=== PATIENT | female | born 1955 | race Caucasian/White ===

== ENCOUNTER → 2018-07-18 | Outpatient (CLI) | payer MEDICARE, OTHER ==
--- NOTE | 2018-07-18 21:20 | RAD ---
EXAM DESCRIPTION: Pelvis CLINICAL HISTORY: 63 years Female, M25.561, M25.551 COMPARISON: None. TECHNIQUE: AP radiograph of the pelvis was performed. FINDINGS: The pelvic ring appears grossly intact on this single AP radiograph. No acute fracture or dislocation. Bilateral sacroiliac joints appear normal. Mild bilateral hip osteoarthritis. Enthesopathy changes of the iliac crests are noted. The visualized lumbo-sacral spine demonstrates mild degenerative changes. IMPRESSION: Single AP radiograph of the pelvis demonstrates grossly intact pelvic ring. Mild bilateral hip osteoarthritis. Electronically signed by: Murray Evans MD 07/18/2018 9:17 PM CDT
--- NOTE | 2018-07-18 21:26 | RAD ---
EXAM DESCRIPTION: Knee,Right Complete CLINICAL HISTORY: 63 years Female, M25.561, M25.551 TECHNIQUE: 4 views of the right knee were performed. COMPARISON: None available. FINDINGS: The visualized bones appear well mineralized. No acute fracture or dislocation. Tricompartmental osteoarthritis, worse in the medial tibiofemoral compartment. Small suprapatellar joint effusion is noted. The soft tissues appear grossly unremarkable. IMPRESSION: Tricompartmental osteoarthritis of the right knee with small suprapatellar joint effusion. Electronically signed by: Murray Evans MD 07/18/2018 9:23 PM CDT
== END ==
LOC: RAD 09:00
PROVIDERS: ATTEND Orthopaedic Surgery
DX: M16.0 Bilateral primary osteoarthritis of hip (principal); M17.11 Unilateral primary osteoarthritis, right knee; M25.551 Pain in right hip; M25.561 Pain in right knee

== ENCOUNTER → 2019-03-05 | Outpatient (CLI) | payer MEDICARE, OTHER ==
--- NOTE | 2019-03-05 12:08 | RAD ---
EXAM DESCRIPTION: Knee,Left Complete CLINICAL HISTORY: 64 years Female, KNEE PAIN TECHNIQUE: 4 views of the left knee were performed. COMPARISON: None available. FINDINGS: The visualized bones appear well mineralized. No acute fracture or dislocation. Minimal medial tibiofemoral joint space narrowing. The soft tissues appear grossly unremarkable. IMPRESSION: Minimal medial tibiofemoral joint space narrowing. Electronically signed by: Vernell Reynolds MD 03/05/2019 12:07 PM [facility]
--- NOTE | 2019-03-05 12:08 | RAD ---
EXAM DESCRIPTION: Ankle,Left 3 Views CLINICAL HISTORY: 64 years Female, ANKLE PAIN COMPARISON: None. Findings: Three views/radiographs Lateral plate and screws transfix a healed distal fibular fracture. No hardware complication identified. The talar dome is unremarkable. The ankle mortise is symmetric. Calcaneal enthesophytes. No acute fracture or dislocation. No focal soft tissue swelling. IMPRESSION: No evidence of acute process. Electronically signed by: Yusuf Sawyer MD 03/05/2019 12:06 PM [facility]
== END | disposition home or self-care (01) ==
LOC: RAD 09:41
PROVIDERS: ATTEND Orthopaedic Surgery
DX: M25.562 Pain in left knee (principal)

== ENCOUNTER 2019-06-19 | Inpatient (IN) | payer MEDICARE, OTHER | END 2019-06-22 11:07 | DRG 470 | PROVIDERS: ADMIT Orthopaedic Surgery | PROC: 0SRC0J9 Replacement of Right Knee Joint with Synthetic Substitute, Cemented, Open Approach (ICD-10-PCS; principal; 2019-06-19) | PROC: 3E0T3BZ Introduction of Anesthetic Agent into Peripheral Nerves and Plexi, Percutaneous Approach (ICD-10-PCS; 2019-06-19) | PROC: 3E0T33Z Introduction of Anti-inflammatory into Peripheral Nerves and Plexi, Percutaneous Approach (ICD-10-PCS; 2019-06-19) | DX: M17.11 Unilateral primary osteoarthritis, right knee (principal); G89.18 Other acute postprocedural pain; I10 Essential (primary) hypertension; E03.9 Hypothyroidism, unspecified; J44.9 Chronic obstructive pulmonary disease, unspecified; G62.9 Polyneuropathy, unspecified; F32.9 Major depressive disorder, single episode, unspecified; K21.9 Gastro-esophageal reflux disease without esophagitis; F41.9 Anxiety disorder, unspecified; F17.210 Nicotine dependence, cigarettes, uncomplicated; Z79.01 Long term (current) use of anticoagulants; Z79.82 Long term (current) use of aspirin; Z79.899 Other long term (current) drug therapy; Z88.0 Allergy status to penicillin; Z79.891 Long term (current) use of opiate analgesic; Z86.711 Personal history of pulmonary embolism ==

== ENCOUNTER 2019-07-03 10:05 | Inpatient (IN) | payer MEDICARE, OTHER ==
[2019-07-03] MEDS ORDERED: SODIUM CHLORIDE 0.9% (FLUSH) 10 ML SYG IV PRN ×2 (10:16→14:21)
[2019-07-03] MEDS ORDERED: SODIUM CHLORIDE 0.9% 1000ML 1,000 ML IVS ONE (10:16)
--- NOTE | 2019-07-03 10:22 | ED.PDOC ---
History of Present Illness - General Chief Complaint: Lower Extremity Injury Stated Complaint: right knee post of cellulitis Time Seen by Provider: 07/03/19 10:15 Source: patient, RN notes reviewed, Vital Signs reviewed, EMS notes reviewed Exam Limitations: no limitations - History of Present Illness Initial Comments: Patient sent from rehab facility for fever, spreading redness to the right knee. Patient had TKR performed by Dr. Armas 06/18/2019. Patient states that he felt warm 2 nights ago, but this began yesterday and is progressively worsened. She ran a fever of 102 last night. She is afebrile now. O2 sats in route with EMS were in the mid 80s, patient does not have any history of COPD or respiratory failure. She denies any chest pain or shortness of breath. She does not report slight cough over the last 2 days. Allergies/Adverse Reactions: Allergies Penicillins Allergy (Severe, Verified 07/03/19 10:22) Anaphylaxis Home Medications: Ambulatory Orders Albuterol Sulfate 1.25 mg IN PRN PRN 06/04/19 Albuterol Sulfate [Proair Hfa] 2 puff INH Q6H PRN 06/04/19 Alprazolam [Xanax] 1 mg PO TID PRN 06/04/19 Apixaban [Eliquis] 5 mg PO BID 06/04/19 Aspirin [Aspirin Adult Low Dose] 81 mg PO DAILY 06/04/19 Atenolol [Tenormin] 50 mg PO BID 06/04/19 Cetirizine HCl [Zyrtec] 10 mg PO DAILY PRN 06/04/19 Clonidine [Clonidine HCl] 0.1 mg TD PRN PRN 06/04/19 Furosemide [Lasix] 20 mg PO DAILY 06/04/19 Gabapentin [Neurontin] 600 mg PO BEDTIME 06/04/19 Hydroxyzine HCl 50 mg PO BEDTIME 06/04/19 Potassium Chloride [K-Tab] 10 meq PO BID 06/04/19 Thyroid [[place] Thyroid] 30 mg PO DAILY 06/04/19 Tiotropium [place] Monohydrate [Spiriva Handihaler] 18 mcg IN DAILY 06/04/19 Vortioxetine HBr [Trintellix] 20 mg PO DAILY 06/04/19 raNITIdine HCL [Zantac] 150 mg PO PRN PRN 06/04/19 Cyclobenzaprine HCl [Flexeril] 10 mg PO Q8H PRN #30 tab 06/22/19 HYDROcodone 10MG/APAP 325MG [[place] 10/325] 1 ea PO Q4H PRN tab 06/22/19 Review of Systems - Review of Systems Constitutional: States: chills, fever EENTM: States: no symptoms reported Respiratory: States: cough. Denies: orthopnea, short of breath, wheezing Cardiology: Denies: chest pain, edema, palpitations, syncope Gastrointestinal/Abdominal: Denies: abdominal pain, diarrhea, vomiting Genitourinary: Denies: dysuria, hematuria Musculoskeletal: States: joint pain, joint swelling Skin: States: change in color. Denies: rash Neurological: Denies: headache, numbness, tingling Endocrine: States: no symptoms reported Hematologic/Lymphatic: States: no symptoms reported Past Medical History (General) - Patient Medical History Hx Seizures: No Hx Stroke: No Hx Asthma: No Hx of COPD: Yes Hx Congestive Heart Failure: No Hx Pacemaker: No Hx Hypertension: Yes Hx Diabetes: No Hx MRSA: No - Social History Hx Alcohol Use: No Hx Substance Use: No Hx Physical Abuse: No Hx Emotional Abuse: No Family Medical History - Family History Mother Family History: Unknown Physical Exam - Physical Exam General Appearance: Alert, Comfortable Ears, Nose, Throat: hearing grossly normal, normal ENT inspection, normal pharynx, other - Dry mucosa Neck: supple, normal inspection Respiratory: chest non-tender, lungs clear, normal breath sounds, no respiratory distress Cardiovascular/Chest: normal peripheral pulses, regular rate, rhythm, no gallop, no JVD, other - 2-3+ pitting edema to the right lower extremity consistent with recent knee surgery. No calf tenderness Peripheral Pulses: posterior tibialis,right: 2+, posterior tibialis,left: 2+ Gastrointestinal/Abdominal: non tender, soft, no organomegaly Rectal Exam: deferred Back Exam: normal inspection, no CVA tenderness Extremity: no calf tenderness, swelling - Well-healed incision from recent TKR procedure. There is erythema spreading from the distal third of the thigh to the proximal third of the lower leg anteriorly. Knee is warm, swollen, Erythematous., other Neurologic: no motor/sensory deficits, alert, normal mood/affect, oriented x 3 Skin Exam: warm/dry, cyanosis, other - See musculoskeletal exam Progress - Progress Progress: 07/03/19 10:57 Dr. armas came and saw the patient in the emergency department. He states he will discuss with hospitalist regarding admission for cellulitis. Does not feel this represents a septic joint, felt to be more likely superficial cellulitis. 07/03/19 11:27 Spoke with Markell Thomas NP. He discussed the case with Dr. armas, will admit for IV antibiotics. Reviewed positive flu swab and initial hypoxia. Will review with case management regarding observation versus admission status. - Results/Orders Results/Orders: Sodium 136 (L) Potassium 3.6 Calcium 1.07 (L) Chloride 98 CO2 27.6 Glucose 97 Lactate 0.65 BUN 9 Creatinine 0.57 Influenza A positive/B- Laboratory Tests 07/03/19 07/03/19 07/03/19 10:20 10:31 10:31 WBC 6.9 RBC 3.67 L Hgb 9.2 L Hct 28.7 L MCV 78.1 L MCH 25.0 L MCHC 32.0 L RDW 17.5 H Plt Count 366 MPV 7.0 L Absolute Neuts (auto) 4.90 Absolute Lymphs (auto) 1.30 Absolute Monos (auto) 0.70 Absolute Eos (auto) 0.00 Absolute Basos (auto) 0.00 Neutrophils % 70.5 Lymphocytes % 18.6 L Monocytes % 9.5 H Eosinophils % 0.7 L Basophils % 0.7 PT 11.1 H INR 1.12 PTT (SP) 26.0 Troponin I B-Natriuretic Peptide Group A Strep Rapid Negative 07/03/19 07/03/19 10:31 10:31 WBC RBC Hgb Hct MCV MCH MCHC RDW Plt Count MPV Absolute Neuts (auto) Absolute Lymphs (auto) Absolute Monos (auto) Absolute Eos (auto) Absolute Basos (auto) Neutrophils % Lymphocytes % Monocytes % Eosinophils % Basophils % PT INR PTT (SP) Troponin I < 0.02 B-Natriuretic Peptide 97.6 Group A Strep Rapid - EKG/XRAY/CT EKG: Sinus - Sinus rhythm, rate 74, left axis, normal intervals, poor R wave progression, no ST segment elevations or depressions Departure - Departure Clinical Impression: Influenza A, Hypoxia, Cellulitis of knee, right Disposition: Admit Patient Condition: Fair Departure Forms: ED Discharge - Pt. Copy, Patient Portal Self Enrollment Instructions: DI for Leg Pain Referrals: Brittany Gonzales MD [Primary Care Provider] - 1-5 Days Home Medications: Ambulatory Orders Albuterol Sulfate 1.25 mg IN PRN PRN 06/04/19 Albuterol Sulfate [Proair Hfa] 2 puff INH Q6H PRN 06/04/19 Alprazolam [Xanax] 1 mg PO TID PRN 06/04/19 Apixaban [Eliquis] 5 mg PO BID 06/04/19 Aspirin [Aspirin Adult Low Dose] 81 mg PO DAILY 06/04/19 Atenolol [Tenormin] 50 mg PO BID 06/04/19 Cetirizine HCl [Zyrtec] 10 mg PO DAILY PRN 06/04/19 Clonidine [Clonidine HCl] 0.1 mg TD PRN PRN 06/04/19 Furosemide [Lasix] 20 mg PO DAILY 06/04/19 Gabapentin [Neurontin] 600 mg PO BEDTIME 06/04/19 Hydroxyzine HCl 50 mg PO BEDTIME 06/04/19 Potassium Chloride [K-Tab] 10 meq PO BID 06/04/19 Thyroid [[place] Thyroid] 30 mg PO DAILY 06/04/19 Tiotropium [place] Monohydrate [Spiriva Handihaler] 18 mcg IN DAILY 06/04/19 Vortioxetine HBr [Trintellix] 20 mg PO DAILY 06/04/19 raNITIdine HCL [Zantac] 150 mg PO PRN PRN 06/04/19 Cyclobenzaprine HCl [Flexeril] 10 mg PO Q8H PRN #30 tab 06/22/19 HYDROcodone 10MG/APAP 325MG [[place] 10/325] 1 ea PO Q4H PRN tab 06/22/19 Decision To Admit - Decistion To Admit Decision to Admit Date: 07/03/19 Decision to Admit Time: 11:20
--- NOTE | 2019-07-03 10:59 | RAD ---
Study: Single Frontal Radiograph of the Chest. Indication:SOB, hypoxia Comparison: None. Impression: Cardiomegaly without failure. Lungs clear. Calcified hilar granulomas suspected. No pleural effusion or pneumothorax. No acute osseous abnormality. Electronically signed by: Jose Roberto Moore MD 07/03/2019 10:57 AM CDT
[2019-07-03] MEDS ORDERED: OSELTAMIVIR 75 MG CAP PO ONE (11:09)
[2019-07-03] MEDS ORDERED: CEFEPIME 2 GM in SODIUM CHL 0.9% 100ML MINI-BAG 100 ML IVPB ONE (11:50)
[2019-07-03] MEDS ORDERED: VANCOMYCIN HCL INJ 2,000 MG in SODIUM CHLORIDE 0.9% 500ML 500 ML IVPB SCH (12:00)
[2019-07-03] MEDS ORDERED: CEFEPIME 2 GM VIAL ONE (12:26)
[2019-07-03] MEDS ORDERED: SODIUM CHL 0.9% 100ML MINI-BAG 100 ML IVPB ONE (12:26)
--- NOTE | 2019-07-03 12:48 | HP ---
SUPERVISING PHYSICIAN: Truman Fisher MD CHIEF COMPLAINT: Right knee pain with generalized malaise. HISTORY OF PRESENT ILLNESS: Ms. Montero is a 64 year-old female patient who underwent a total knee replacement arthroplasty on 06/12/19. Postoperatively, she did well and was discharged to inpatient rehabilitation facility in [place], [place]. She endorses that she has done pretty good, however, she had a therapy session yesterday and started having some pain after. She noted her knee became stiff and she had some pain on the lateral aspect with some redness but no significant swelling. She also endorses that for the last 24 hours she has been having some generalized malaise and running a low- grade fever. Dr. Armas contacted the Infectious Care Facility yesterday to discuss the patient's care and requested that Ms. Montero be transferred to [place] for evaluation. She was seen in the Emergency Room and was found to have some pain along the lateral aspect of her right knee but no notable swelling. Dr. Armas requested that the patient be admitted for concerns for possible cellulitis but no evidence of any joint involvement. She also had a flu swab which showed positive for influenza A. She is now going to be admitted for observation and initiation of antibiotic therapy and treatment of underlying influenza A infection. PAST MEDICAL HISTORY: 1. Hypertension. 2. Hypothyroidism. 3. Asthma. 4. Peripheral neuropathy. 5. Chronic tobacco abuse. 6. 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 PAST SURGICAL HISTORY: 1. Total knee arthroplasty, right, on 06/12/19. Previous left knee surgery. 2. Tonsillectomy. 3. Appendectomy. 4. ORIF of left ankle. OUTPATIENT MEDICATIONS: 1. Zantac 150 mg p.r.n. 2. Trintellix 20 mg daily. 3. Spiriva hand inhaler 18 mcg daily. 4. [place] thyroid 30 mg daily. 5. Potassium chloride 10 mEq b.i.d. 6. Hydroxyzine 50 mg at bedtime. 7. [place] 10/325, one every 4 hours as needed for pain. 8. Gabapentin 600 mg at bedtime. 9. Lasix 20 mg daily. 10. Flexeril 10 mg every 8 hours as needed. 11. Clonidine 0.1 mg daily p.r.n. 12. Zyrtec 10 mg daily as needed. 13. Tenormin 50 mg b.i.d. 14. Aspirin 81 mg daily. 15. Eliquis 5 mg b.i.d. 16. Xanax 1 mg t.i.d. p.r.n. 17. Albuterol 2 puffs inhaled every 6 hours p.r.n. 18. Albuterol sulfate 1.25 mg inhaled p.r.n. ALLERGIES: PENICILLIN. FAMILY HISTORY: Noncontributory. SOCIAL HISTORY: The patient lives in [place], [place]. She is . She smokes 1 to 1-1/2 pack of cigarettes per day and has for many years. She quit drinking alcoholic beverages about 3 years previously. She denies any illicit drug use. REVIEW OF SYSTEMS: VITAL SIGNS: CONSTITUTIONAL: Positive for general malaise, body aches. HEENT: Denies earache, sore throat, nasal congestion, positive for headaches. CHEST: Positive for cough but denies any orthopnea, shortness of breath or wheezing. HEART: Denies chest pain, palpitations, syncopal episodes, peripheral edema. ABDOMEN: Denies abdominal pain, diarrhea, vomiting, constipation. GENITOURINARY: Denies dysuria, hematuria or polyuria. MUSCULOSKELETAL: Right knee as per history of present illness. SKIN: Denies rashes other than noted in history of present illness on right knee. NEUROLOGIC: Denies headaches, numbness or tingling, syncopal episodes, ataxia or focal deficits. HEMATOLOGIC: Denies any unexplained bleeding, easy bruising, transfusion reactions. PHYSICAL EXAMINATION: VITAL SIGNS: Temperature 97.9, pulse 90, blood pressure 184/70, respirations 23, oxygen saturation 99% on 2 liters nasal cannula. GENERAL: The patient is resting comfortably, does not appear to be in any acute distress. She is alert. HEENT: Tympanic membranes are clear bilaterally. Oropharynx is pink and moist. Posterior pharynx was mildly erythemic but no lesions. NECK: Supple, non-tender, full range of motion. No jugular venous distention. CHEST: Lung sounds are clear to auscultation bilaterally, just slightly diminished towards the bases but no obvious rhonchi, rales, or wheezes. CARDIOVASCULAR: Regular rate and rhythm without appreciable murmurs, gallops, or rubs. ABDOMEN: Obese but soft, non-tender, positive bowel sounds. EXTREMITIES: Right lower extremity shows well-healed incision on the anterior aspect of the knee with some discoloration noted on the lateral aspect. She does have some pain with palpation laterally but no notable infusion. She has good extension and flexion without significant pain. Distal pulses are strong, capillary refill brisk. Otherwise, all other extremities are without any significant findings. NEUROLOGIC: Cranial nerves II through XII are grossly intact. Facial features are symmetrical. Extraocular movements are within normal limits. There is no notable nystagmus. She is alert and oriented x 3. LABORATORY: White count 6,900, hemoglobin 9.2, hematocrit 28.7, platelet count 366,000, differential shows to be without a left shift. Coagulation studies showed a PT of 11.1, PTT of 26.0. Chemistries show a sodium of 134, potassium of 3.5, BUN 10, creatinine 0.55, lactic acid 0.7. Liver functions all within normal limits. C-reactive protein was 8. BNP 97.6 with troponin less than 0.02. ESR 53. Urinalysis just showed trace intact blood and 2.0 urobilinogen, otherwise was negative. Microscopic was was negative. Serology: group A strep was negative. MICROBIOLOGY: Blood cultures are pending. Group A streptococcus cultures pending. Influenza A and B by PCR showing positive for A, negative for B. ASSESSMENT: 1. Questionable cellulitis to the lateral aspect of the right knee. 2. Knee sprain secondary to physical therapy probably resulting in #1. 3. Influenza A infection. 4. Status post total knee arthroplasty. 5. Hypertension. 6. Hypothyroidism. 7. Asthma. 8. Peripheral neuropathy. 9. Chronic tobacco abuse. PLAN: Ms. Montero is going to be placed in acute care in observation for initiation of antibiotics with Ancef and vancomycin per pharmacy protocol. I have given her a dose of Xofluza. She will be on aggressive pulmonary hygiene with incentive spirometry. Dr. Armas has consulted on the patient and is recommending antibiotic therapy, close monitoring and reassessment. We will resume her home medications once those are updated and verified as appropriate to care. She remains on DVT prophylaxis with Eliquis prior to hospitalization. We will anticipate her length of stay to be at least 2 days. Until we can transition her to outpatient management, we will continue to monitor and treat as needed #[id number] MTDD
[2019-07-03] MEDS ORDERED: HYDROcodone 10MG/APAP 325MG 1 EA TAB PO ONE ×2 (12:59)
[2019-07-03] MEDS ORDERED: HYDROcodone 10MG/APAP 325MG 1 EA TAB ONE (13:00)
[2019-07-03] MEDS ORDERED: ALBUTEROL SULFATE 2.5 MG/3 ML VIAL NEB PRN (14:21)
[2019-07-03] MEDS ORDERED: ACETAMINOPHEN 325 MG TAB PO PRN (14:21)
[2019-07-03] MEDS ORDERED: VANCOMYCIN PER PHARMACY IVPB SCH (14:30)
[2019-07-03] MEDS ORDERED: VANCOMYCIN HCL INJ 1,000 MG VIAL IVPB ONE ×2 (14:34→19:27)
[2019-07-03] MEDS ORDERED: SODIUM CHLORIDE 0.9% 500ML 500 ML ONE (14:34)
--- NOTE | 2019-07-03 14:56 | CONS ---
DATE OF CONSULTATION: 07/03/19 CHIEF COMPLAINT: 1. Right knee pain. 2. General overall malaise. HISTORY OF PRESENT ILLNESS: Jada is a 64-year-old female that underwent total knee arthroplasty on 06/12/19. She was discharged and was admitted to an inpatient care facility in [place], [place]. She was doing pretty well, however, she said that a therapist hyperflexed her knee and she began having increasing pain. She said the therapist did not return and she has subsequently developed stiffness. She also developed some pain along the lateral aspect. She denies any neurologic symptoms and denies any distinct injury aside from the aforementioned one. She has not been running any fevers. I was contacted by the inpatient care facility last night about this and asked that she be transferred to [place] for further evaluation. She presents today with pain only along the lateral aspect of the knee. She has not been having any significant swelling and denies any medial pain or superior pain. She has been doing exercises of the knee and has not had any significant pain with range of motion. She did have some general malaise and unfortunately, has tested positive for influenza A. PAST MEDICAL HISTORY: 1. Anxiety disorder. 2. Arthritis. 3. Asthma. 4. Blood clots. 5. Depression. 6. Gastroesophageal reflux disease. 7. Hypertension. 8. Hypothyroidism. PAST SURGICAL HISTORY: 1. ORIF of ankle. 2. Removal of John's deformity. 3. Tubal ligation. 4. Appendectomy. MEDICATIONS: 1. Alprazolam. 2. Thyroid medicine. 3. Atenolol. 4. Gabapentin. 5. Hydrocodone. 6. Ketoralac. 7. Levalbuterol. 8. Lorazepam. 9. Losartan. 10. Meloxicam. 11. Ondansetron. 12. Vivlodex. 13. Zolpidem. ALLERGIES: PENICILLINS. SOCIAL HISTORY: The patient currently smokes about one pack per day. FAMILY HISTORY: None pertinent to today's complaint. REVIEW OF SYSTEMS: Negative except as indicated in the History of Present Illness. HEENT: The patient reports no symptoms. RESPIRATORY: The patient reports no symptoms. CARDIOVASCULAR: The patient reports no symptoms. GASTROINTESTINAL: The patient reports no symptoms GENITOURINARY: The patient reports no symptoms. MUSCULOSKELETAL: Negative except as noted in History of Present Illness. SKIN: The patient reports no symptoms. NEUROLOGIC: The patient reports no symptoms. PHYSICAL EXAMINATION: VITAL SIGNS: Height 5'2". Weight 203 pounds. BMI 37. Blood pressure 130/80. Temperature 98.9. MENTAL STATUS: The patient is awake, alert, and is able to give a good history and participate in the physical. The patient is oriented to person, place and time. SKIN: Normal tone and turgor. HEENT: Normocephalic, atraumatic. Pupils equal, round and reactive. Mucosal membranes are moist. NECK: Normal range of motion. No thyromegaly, no lymphadenopathy. CHEST: Normal respiratory excursion. CARDIAC: Regular rate and rhythm. No murmurs, rubs or gallops. MUSCULOSKELETAL: Bilateral upper extremities show full active range of motion without pain. She has intact sensation in both upper extremities. They are warm and well perfused. There is no deformity. Strength is 5/5. Skin is intact. Reflexes are 2+. The left lower extremity shows no malalignment and no deformity. She has intact sensation in the extremity. There is no evidence of trauma. Strength is 5/5. The right lower extremity shows well-healed wound on the anterior aspect of the knee. She has discoloration on the lateral aspect. She has pain to palpation laterally. She has no effusion at all. She is able to fully extend the leg and flex to about 90 degrees without any pain. At 90 degrees, she starts to get stiffness which does cause discomfort. There is no instability. She has full 5/5 plantar flexion strength and dorsiflexion strength. She does have some increased warmth of the soft tissues on the lateral aspect of the knee. The skin otherwise is intact without any abnormality. She has full range of motion in both hips, ankles and all 10 digits. ASSESSMENT: 1. Influenza. 2. Possible cellulitis of the lateral aspect. 3. Knee sprain secondary to aggressive therapy. 4. Status post total knee arthroplasty. RECOMMENDATION: At this point, give her physical examination with lack of an effusion and no significant pain in the knee joint proper, I do not feel as though she has a septic knee. She may have some cellulitis laterally, but I do not believe this affects the joint. It would be probably prudent to admit her for some antibiotics as well as treatment for her influenza. We will have her admitted and we will monitor her situation. At this time, I would recommend starting her on vancomycin and Ancef as routine postoperative antibiotics. #[id number] [facility]
[2019-07-03] MEDS: IPRATROPIUM/ALBUTEROL 3 ML VIAL INH SCH ×2 (16:18→20:27)
[2019-07-03] MEDS ORDERED: XOFLUZA 40 MG PO ONE (16:52)
[2019-07-03] MEDS ORDERED: NON-FORMULARY MEDICATION 1 EA MIS (Alprazolam [Xanax] 1 MG) PO PRN (18:28)
[2019-07-03] MEDS ORDERED: BALOXAVIR MARBOXIL 40 MG TAB PO ONE (18:31)
[2019-07-03] MEDS ORDERED: SODIUM CHLORIDE 0.9% 250ML 250 ML ONE (19:27)
[2019-07-03] MEDS ORDERED: hydrOXYzine HCl 25 MG TAB ONE (19:27)
[2019-07-03] MEDS ORDERED: ATENOLOL 25 MG TAB ONE (19:27)
[2019-07-03] MEDS: POTASSIUM CHLORIDE 10 MEQ TAB PO SCH (20:05)
[2019-07-03] MEDS: APIXABAN 5 MG TAB PO SCH (20:05)
[2019-07-03] MEDS: GABAPENTIN 300 MG CAP PO SCH (20:05)
[2019-07-03] MEDS: NON-FORMULARY MEDICATION 1 EA MIS (Atenolol [Tenormin] 50 MG) PO SCH (20:05)
[2019-07-03] MEDS ORDERED: HYDROXYZINE HCL 50 MG PO SCH (21:00)
[2019-07-04] MEDS: VANCOMYCIN HCL INJ 1,000 MG in SODIUM CHLORIDE 0.9% 250ML 250 ML IVPB SCH ×2 (03:44→16:20)
[2019-07-04] MEDS: IV SET AND CAP CHANGE INJ INJ SCH (03:44)
[2019-07-04] MEDS: IPRATROPIUM/ALBUTEROL 3 ML VIAL INH SCH ×4 (08:04→20:30)
[2019-07-04] MEDS ORDERED: THYROID 30 MG PO SCH (09:00)
[2019-07-04] MEDS ORDERED: NON-FORMULARY MEDICATION 1 EA MIS (Furosemide [Lasix] 20 MG) PO SCH (09:00)
[2019-07-04] MEDS ORDERED: SODIUM CHLORIDE 0.9% 250ML 0 ML ONE (10:51)
[2019-07-04] MEDS ORDERED: VANCOMYCIN HCL INJ 1,000 MG VIAL IVPB ONE ×3 (10:52→20:18)
[2019-07-04] MEDS: FUROSEMIDE 40 MG TAB PO SCH (11:01)
[2019-07-04] MEDS: POTASSIUM CHLORIDE 10 MEQ TAB PO SCH ×2 (11:01→20:45)
[2019-07-04] MEDS: ASPIRIN (ENTERIC COATED) 81 MG TAB PO SCH (11:02)
[2019-07-04] MEDS: THYROID 60 MG TAB PO SCH (11:03)
[2019-07-04] MEDS: APIXABAN 5 MG TAB PO SCH ×2 (11:04→20:45)
[2019-07-04] MEDS: VORTIOXETINE HBR 20 MG PO SCH (11:05)
[2019-07-04] MEDS ORDERED: SODIUM CHLORIDE 0.9% 100ML 0 ML IVPB ONE (11:07)
[2019-07-04] MEDS ORDERED: ceFAZolin SODIUM 1 GM VIAL ONE ×3 (11:08→20:18)
[2019-07-04] MEDS: ATENOLOL 25 MG TAB PO SCH ×2 (11:10→20:46)
[2019-07-04] MEDS: HYDROcodone 5MG/APAP 325MG 1 EA TAB PO PRN (11:20)
[2019-07-04] MEDS: NON-FORMULARY MEDICATION 1 EA MIS (Atenolol [Tenormin] 50 MG) PO SCH (11:22)
[2019-07-04] MEDS: ceFAZolin SODIUM 2 GM in SODIUM CHLORIDE 0.9% 100ML 100 ML IVPB SCH ×2 (11:23→18:22)
[2019-07-04] MEDS ORDERED: raNITIdine HCL INJ 50 MG in SODIUM CHLORIDE 0.9% 50ML 50 ML IVPB ONE (12:00)
[2019-07-04] MEDS ORDERED: methylPREDNISolone SODIUM SUC 125 MG/2 ML VIAL IV ONE (12:09)
--- NOTE | 2019-07-04 13:04 | RAD ---
EXAM DESCRIPTION: Chest,1 View CLINICAL HISTORY: 64 years Female, PICC line placement COMPARISON: Radiograph the chest dated 07/03/2019. TECHNIQUE: AP radiograph of the chest was obtained. FINDINGS: Tip of the left PICC line overlies the atriocaval junction. Trachea is midline.The cardiomediastinal silhouette is normal in size. The pulmonary vasculature is within normal limits.The lungs are clear with no acute consolidation.No evidence of pleural effusions. IMPRESSION: No acute cardiopulmonary process. Tip of the left PICC line overlies the atriocaval junction. Electronically signed by: Vernell Reynolds MD 07/04/2019 1:03 PM CDT
[2019-07-04] MEDS ORDERED: SODIUM CHLORIDE 0.9% 250ML 250 ML ONE ×2 (15:58→20:17)
[2019-07-04] MEDS ORDERED: raNITIdine HCL INJ 25 MG/ML VIAL ONE (15:58)
[2019-07-04] MEDS ORDERED: methylPREDNISolone SODIUM SUC 125 MG/2 ML VIAL ONE (15:58)
[2019-07-04] MEDS ORDERED: SODIUM CHLORIDE 0.9% 100ML 100 ML IVPB ONE ×3 (16:03→20:18)
[2019-07-04] MEDS ORDERED: SODIUM CHLORIDE 0.9% 50ML 50 ML ONE (16:16)
[2019-07-04] MEDS: ALPRAZolam 0.5 MG TAB PO PRN (17:01)
[2019-07-04] MEDS: GABAPENTIN 300 MG CAP PO SCH (20:45)
[2019-07-04] MEDS: hydrOXYzine HCl 25 MG TAB PO SCH (20:46)
[2019-07-05] MEDS: ceFAZolin SODIUM 2 GM in SODIUM CHLORIDE 0.9% 100ML 100 ML IVPB SCH ×3 (02:18→18:50)
[2019-07-05] MEDS: VANCOMYCIN HCL INJ 1,000 MG in SODIUM CHLORIDE 0.9% 250ML 250 ML IVPB SCH (04:12)
[2019-07-05] MEDS: ALPRAZolam 0.5 MG TAB PO PRN ×2 (05:18→14:35)
[2019-07-05] MEDS: HYDROcodone 5MG/APAP 325MG 1 EA TAB PO PRN (07:43)
[2019-07-05] MEDS: IPRATROPIUM/ALBUTEROL 3 ML VIAL INH SCH ×4 (08:06→20:41)
--- NOTE | 2019-07-05 08:58 | PN ---
SUPERVISING PHYSICIAN: Fermín Fisher MD DATE: 07/04/19 SUBJECTIVE: The patient had a urticarial type rash on her right shoulder, deltoid, extending down to just above the elbow that occurred overnight. She notes she got a pneumonia vaccine at the hospital she came from the day before and the rash is just sore and itching. She does not have any complaints of respiratory compromise or problems with nausea or vomiting and no other rashes. She reports her leg is tool tender, but seems to be a little bit improved, still stiff. Otherwise, no further complaints. OBJECTIVE: VITAL SIGNS: She remains afebrile with temperature 98.3, pulse 63, blood pressure 162/88, respirations 16, saturation 94% on room air. CHEST: Lungs are clear to auscultation bilaterally, just slightly diminished towards the bases. HEART: Regular rate and rhythm. ABDOMEN: Soft, nontender. Positive bowel sounds. EXTREMITIES: Right deltoid has an ecchymotic area with a red, erythematous, urticarial type rash that extends from the deltoid down to just above the elbow. Margins have been marked. No obvious signs of drainage or fluctuation, but it is tender to palpation. Right knee continues to show some erythema, but swelling seemed to be much decreased. Swelling is essentially just superficially with no joint involvement and is improving with margins again marked and the redness dropping below the initial demarcation of the initial cellulitis. Distally, pulses are strong. Capillary refill is brisk. NEUROLOGIC: Alert and oriented times three. LABORATORY: Chemistry today shows improved sodium at 136, potassium still slightly low at 3.4. Otherwise, creatinine 0.55, calcium 8.1. MICROBIOLOGY: Blood cultures remain negative at 24 hours. RADIOLOGY: Repeat chest x-ray status post PICC line placement shows no acute cardiopulmonary process with PICC line overlying the atriocaval junction. ASSESSMENT: 1. Influenza A infection. 2. Superficial cellulitis to the lateral aspect of the right knee with no obvious joint involvement. 3. Knee sprain, probably resulting in #1. 4. Localized allergic reaction to previous pneumonia vaccine injection with some ecchymosis and urticarial rash with no systemic signs or symptoms. 5. History of deep venous thromboses with pulmonary embolisms on chronic Eliquis for anticoagulation therapy. 6. Status post left total knee arthroplasty with no postoperative complications. 7. Hypertension. 8. Hypothyroidism. 9. Asthma. 10. Peripheral neuropathy. 11. Chronic tobacco abuse. PLAN: The patient is going to be changed to a full admission given her multiple comorbidities and complications with the influenza A and concerns for developing cellulitis with requirement of IV antibiotics. She was given a dose of Xofluza yesterday. She remains on DVT prophylaxis with Eliquis. We will continue with aggressive pulmonary hygiene including incentive spirometry. After talking with Dr. Armas, I ordered a physical therapy consultation for treatment and evaluation of the right knee. We will continue to monitor and treat as needed until we can transition her to outpatient management, which hopefully will occur in the next 24 to 48 hours. She did have a PICC line placed in the event she is going to need long-term IV therapy which will be decided in the next 24 to 48 hours. [id number]
--- NOTE | 2019-07-05 09:14 | PN ---
DATE: 07/04/19 SUBJECTIVE: Jada is doing pretty well today. Her pain is improved. She has been up walking. OBJECTIVE: Afebrile. Vital signs stable. The knee has improved. The wound is well-healed. ASSESSMENT: 1. Upper respiratory infection. 2. Type 1 flu. 3. Possible cellulitis. 4. Status post total knee arthroplasty. PLAN: The plan at this point is for her to continue treatment. She will be doing physical therapy as well. #[id number] [facility]
[2019-07-05] MEDS: ATENOLOL 25 MG TAB PO SCH ×2 (09:18→20:26)
[2019-07-05] MEDS: POTASSIUM CHLORIDE 10 MEQ TAB PO SCH ×2 (09:19→20:25)
[2019-07-05] MEDS: ASPIRIN (ENTERIC COATED) 81 MG TAB PO SCH (09:19)
[2019-07-05] MEDS: FUROSEMIDE 40 MG TAB PO SCH (09:19)
[2019-07-05] MEDS: THYROID 60 MG TAB PO SCH (09:19)
[2019-07-05] MEDS: APIXABAN 5 MG TAB PO SCH ×2 (09:19→20:25)
[2019-07-05] MEDS: VORTIOXETINE HBR 20 MG PO SCH (09:22)
[2019-07-05] MEDS ORDERED: POTASSIUM CHLORIDE 20 MEQ TAB PO ONE (09:26)
[2019-07-05] MEDS ORDERED: ceFAZolin SODIUM 1 GM VIAL ONE ×2 (10:21→18:37)
[2019-07-05] MEDS ORDERED: SODIUM CHLORIDE 0.9% 100ML 100 ML IVPB ONE ×2 (10:21→18:37)
--- NOTE | 2019-07-05 11:42 | US ---
EXAM DESCRIPTION: Venous,Lower Extremity RT (accession [id number]), Venous,Upper Extremity RT (accession [id number]): ULTRASOUND. CLINICAL HISTORY: cellulitis COMPARISON: None Available. TECHNIQUE: Wharton-scale and doppler sonographic evaluation of the deep venous system of the right lower extremity. Two -dimensional and doppler sonographic evaluation of the deep venous system of the right upper extremity. FINDINGS: Doppler evaluation shows normal color flow and normal phasicity and augmentation of the right common femoral vein, femoral vein, popliteal vein, greater saphenous vein, junction with the CFV. Also normal color flow and normal phasicity and augmentation of the peroneal, and posterior tibial vein. The right lower extremity deep veins were completely compressible; normal occlusion with transducer pressure. Wharton-scale survey showed no echogenic thrombus within these veins. Doppler evaluation shows normal color flow and normal phasicity and augmentation of the right subclavian, jugular, axillary, basilic, cephalic, brachial, radial vein and ulnar vein. The right upper extremity deep veins showed normal occlusion with transducer pressure. Two-dimensional survey showed no echogenic thrombus within these veins. IMPRESSION: Duplex ultrasound evaluation of the right upper extremity deep venous system showing no thrombosis . Duplex ultrasound evaluation of the right lower extremity deep venous system showing no evidence of thrombosis. Electronically signed by: Benjamín Pena MD 07/05/2019 11:40 AM CDT
--- NOTE | 2019-07-05 11:42 | US ---
EXAM DESCRIPTION: Venous,Lower Extremity RT (accession [id number]), Venous,Upper Extremity RT (accession [id number]): ULTRASOUND. CLINICAL HISTORY: cellulitis COMPARISON: None Available. TECHNIQUE: Wharton-scale and doppler sonographic evaluation of the deep venous system of the right lower extremity. Two -dimensional and doppler sonographic evaluation of the deep venous system of the right upper extremity. FINDINGS: Doppler evaluation shows normal color flow and normal phasicity and augmentation of the right common femoral vein, femoral vein, popliteal vein, greater saphenous vein, junction with the CFV. Also normal color flow and normal phasicity and augmentation of the peroneal, and posterior tibial vein. The right lower extremity deep veins were completely compressible; normal occlusion with transducer pressure. Wharton-scale survey showed no echogenic thrombus within these veins. Doppler evaluation shows normal color flow and normal phasicity and augmentation of the right subclavian, jugular, axillary, basilic, cephalic, brachial, radial vein and ulnar vein. The right upper extremity deep veins showed normal occlusion with transducer pressure. Two-dimensional survey showed no echogenic thrombus within these veins. IMPRESSION: Duplex ultrasound evaluation of the right upper extremity deep venous system showing no thrombosis . Duplex ultrasound evaluation of the right lower extremity deep venous system showing no evidence of thrombosis. Electronically signed by: Benjamín Pena MD 07/05/2019 11:40 AM CDT
[2019-07-05] MEDS ORDERED: VANCOMYCIN HCL INJ 500 MG VIAL ONE (16:49)
[2019-07-05] MEDS ORDERED: VANCOMYCIN HCL INJ 1,000 MG VIAL IVPB ONE (16:49)
[2019-07-05] MEDS ORDERED: SODIUM CHLORIDE 0.9% 250ML 250 ML ONE (16:49)
[2019-07-05] MEDS: VANCOMYCIN HCL INJ 1,000 MG, VANCOMYCIN HCL INJ 250 MG in SODIUM CHLORIDE 0.9% 250ML 25... IVPB SCH (16:53)
--- NOTE | 2019-07-05 19:27 | PN ---
SUPERVISING PHYSICIAN: Fermín Fisher MD DATE: 07/05/19 SUBJECTIVE: The patient has been up ambulation. She notes some pain in her knee just on flexion at times but she notes the swelling seems to be less but she still has stiffness. She has had no further complaints of nausea or vomiting, she has had some diarrhea and we discussed putting her on some Align given that she is on 2 antibiotics. She does remain afebrile. OBJECTIVE: VITAL SIGNS: Temperature 98, pulse 78, blood pressure 165/68, respirations 18, saturation 95% on room air. GENERAL: The patient is resting comfortably, ambulating with nursing staff. Appears comfortable and she is alert. She does not appear to be in any acute distress. CHEST: Lungs are clear to auscultation. HEART: Regular rate and rhythm. ABDOMEN: Soft, nontender. Positive bowel sounds. EXTREMITIES: Right deltoid has an ecchymotic area with minimal erythema today. The rash seems to be resolving nicely. It has receded below the margins that were marked initially. Right knee is showing decrease in swelling, still remains a little tender on palpation but no obvious bony involvement with fusion or signs of infection other than continued area of cellulitis which is receding below the margins that were marked initially on admission. Distally, pulses are strong. Capillary refill is brisk. NEUROLOGIC: Alert and oriented times three. LABORATORY: No additional laboratory studies today. MICROBIOLOGY: Blood cultures remain negative at 48 hours. Negative group A strep culture. RADIOLOGY: Lower extremity ultrasound and upper extremity ultrasound both without any acute findings or a deep venous thrombus. ASSESSMENT: 1. Influenza A infection having been on Xofluza now showing to be afebrile with some slight improvement. Still has continuous cough. 2. Cellulitis involving the lateral aspect of the right knee, more superficial with no obvious joint involvement. Improving with antibiotics to include Ancef and vancomycin. 3. Knee sprain, probably resulting in #1. 4. Urticaria reaction to the right upper deltoid secondary to a previous pneumonia vaccine showing improvement after steroids and Benadryl. 5. History of deep venous thromboses with pulmonary embolisms on chronic Eliquis for anticoagulation therapy. 6. Status post left total knee arthroplasty with no postoperative complications. 7. Hypertension. 8. Hypothyroidism. 9. Asthma. 10. Peripheral neuropathy. 11. Chronic tobacco abuse. PLAN: Will continue current plan at this point with vancomycin and Ancef. Will continue with breathing treatments and aggressive pulmonary hygiene, She remains under physical therapy for treatment and has been on TPM. She has a PICC line in place for long-term IV therapy, still in the process of deciding ultimate treatment plan. Until then, we will continue to monitor and treat as needed. #[id number] [facility]
[2019-07-05] MEDS: GABAPENTIN 300 MG CAP PO SCH (20:26)
[2019-07-05] MEDS: hydrOXYzine HCl 25 MG TAB PO SCH (20:26)
[2019-07-05] MEDS: BIFIDOBACTERIUM INFANTIS 4 MG CAP PO SCH (20:26)
[2019-07-06] MEDS ORDERED: ceFAZolin SODIUM 1 GM VIAL ONE ×3 (01:18→18:56)
[2019-07-06] MEDS ORDERED: SODIUM CHLORIDE 0.9% 100ML 100 ML IVPB ONE ×3 (01:18→18:56)
[2019-07-06] MEDS: ceFAZolin SODIUM 2 GM in SODIUM CHLORIDE 0.9% 100ML 100 ML IVPB SCH ×3 (02:02→19:28)
[2019-07-06] MEDS ORDERED: VANCOMYCIN HCL INJ 500 MG VIAL ONE ×2 (03:56→16:40)
[2019-07-06] MEDS ORDERED: VANCOMYCIN HCL INJ 1,000 MG VIAL IVPB ONE ×2 (03:56→16:40)
[2019-07-06] MEDS ORDERED: SODIUM CHLORIDE 0.9% 250ML 250 ML ONE ×2 (03:56→16:40)
[2019-07-06] MEDS: VANCOMYCIN HCL INJ 1,000 MG, VANCOMYCIN HCL INJ 250 MG in SODIUM CHLORIDE 0.9% 250ML 25... IVPB SCH ×2 (03:58→17:09)
[2019-07-06] MEDS: TIOTROPIUM INHALER INH SCH (08:28)
[2019-07-06] MEDS: IPRATROPIUM/ALBUTEROL 3 ML VIAL INH SCH ×5 (08:28→19:32)
[2019-07-06] MEDS: ASPIRIN (ENTERIC COATED) 81 MG TAB PO SCH (09:09)
[2019-07-06] MEDS: BIFIDOBACTERIUM INFANTIS 4 MG CAP PO SCH (09:09)
[2019-07-06] MEDS: FUROSEMIDE 40 MG TAB PO SCH (09:09)
[2019-07-06] MEDS: ATENOLOL 25 MG TAB PO SCH ×2 (09:09→20:51)
[2019-07-06] MEDS: THYROID 60 MG TAB PO SCH (09:09)
[2019-07-06] MEDS: APIXABAN 5 MG TAB PO SCH ×2 (09:09→20:51)
[2019-07-06] MEDS: POTASSIUM CHLORIDE 10 MEQ TAB PO SCH ×2 (09:09→20:51)
[2019-07-06] MEDS: VORTIOXETINE HBR 20 MG PO SCH (09:10)
[2019-07-06] MEDS: IV SET AND CAP CHANGE INJ INJ SCH (16:57)
[2019-07-06] MEDS: GABAPENTIN 300 MG CAP PO SCH (20:50)
[2019-07-06] MEDS: hydrOXYzine HCl 25 MG TAB PO SCH (20:51)
[2019-07-06] MEDS ORDERED: cloNIDine PATCH 0.1MG/24HR 0.1 MG PATCH TD PRN (20:51)
[2019-07-06] MEDS: cloNIDine HCL 0.1 MG TAB PO PRN (21:08)
[2019-07-07] MEDS ORDERED: SODIUM CHLORIDE 0.9% 100ML 100 ML IVPB ONE ×4 (02:13→20:08)
[2019-07-07] MEDS ORDERED: ceFAZolin SODIUM 1 GM VIAL ONE ×4 (02:13→20:09)
[2019-07-07] MEDS: ceFAZolin SODIUM 2 GM in SODIUM CHLORIDE 0.9% 100ML 100 ML IVPB SCH ×3 (02:19→18:16)
[2019-07-07] MEDS ORDERED: SODIUM CHLORIDE 0.9% 250ML 250 ML ONE ×2 (03:35→16:00)
[2019-07-07] MEDS ORDERED: VANCOMYCIN HCL INJ 500 MG VIAL ONE ×2 (03:35→16:00)
[2019-07-07] MEDS ORDERED: VANCOMYCIN HCL INJ 1,000 MG VIAL IVPB ONE ×2 (03:35→16:01)
[2019-07-07] MEDS: VANCOMYCIN HCL INJ 1,000 MG, VANCOMYCIN HCL INJ 250 MG in SODIUM CHLORIDE 0.9% 250ML 25... IVPB SCH ×2 (03:42→16:23)
[2019-07-07] MEDS: IPRATROPIUM/ALBUTEROL 3 ML VIAL INH SCH ×3 (08:01→16:05)
[2019-07-07] MEDS: TIOTROPIUM INHALER INH SCH (08:01)
[2019-07-07] MEDS: VORTIOXETINE HBR 20 MG PO SCH (09:01)
[2019-07-07] MEDS: FUROSEMIDE 40 MG TAB PO SCH (09:02)
[2019-07-07] MEDS: BIFIDOBACTERIUM INFANTIS 4 MG CAP PO SCH (09:02)
[2019-07-07] MEDS: ASPIRIN (ENTERIC COATED) 81 MG TAB PO SCH (09:02)
[2019-07-07] MEDS: ATENOLOL 25 MG TAB PO SCH ×2 (09:03→20:32)
[2019-07-07] MEDS: APIXABAN 5 MG TAB PO SCH ×2 (09:03→20:32)
[2019-07-07] MEDS: POTASSIUM CHLORIDE 10 MEQ TAB PO SCH ×2 (09:05→20:32)
[2019-07-07] MEDS: THYROID 60 MG TAB PO SCH (09:05)
[2019-07-07] MEDS ORDERED: MAGNESIUM SULFATE PREMIX 2GM 2 GM in PREMIX BAG 1 BAG IVPB ONE (11:01)
[2019-07-07] MEDS ORDERED: MAGNESIUM SULFATE PREMIX 2GM 50 ML IVPB ONE (11:12)
[2019-07-07] MEDS: POTASSIUM CHLORIDE 20 MEQ TAB PO SCH (11:16)
[2019-07-07] MEDS: LOSARTAN POTASSIUM 25 MG TAB PO SCH (11:17)
--- NOTE | 2019-07-07 11:22 | PN ---
SUPERVISING PHYSICIAN: Truman Fisher MD DATE: 07/06/19 SUBJECTIVE: The patient is walking the hallway. She has no complaints. She has actually done quite well with her physical therapy. Due to her multiple issues, Dr. Armas has requested she stay through the weekend for physical therapy, especially since she lives quite a distance away from here. She has no complaints of shortness of breath, chest pain, nausea or vomiting. OBJECTIVE: VITAL SIGNS: Temperature 98, heart rate 85, blood pressure 164/76, respiratory rate 18, oxygen saturation 98% on room air. RESPIRATORY: Essentially clear to auscultation bilaterally. HEART: Regular rate and rhythm. ABDOMEN: Soft, nondistended, non-tender, bowel sounds are positive. EXTREMITIES: Bilateral pedal pulses are palpable at+2. Right knee has very minimal swelling. It is somewhat tender to palpation but there no signs or symptoms of infection. They have almost completely receded from the areas that were initially marked on admission. Her capillary refill is brisk. NEUROLOGIC: She is awake, alert, and oriented x3. ASSESSMENT: 1. Influenza A infection having been on Xofluza now showing to be afebrile with some slight improvement. 2. Cellulitis involving the lateral aspect of the right knee that is superficial with no obvious joint involvement, improving with antibiotics to include Ancef and vancomycin. 3. Knee sprain, probably resulting in #2. 4. Urticarial reaction to the right upper deltoid secondary to a previous pneumonia vaccine improving with Benadryl and steroids. 5. History of deep venous thromboses with pulmonary embolism on chronic Eliquis for anticoagulation therapy. 6. Status post left total knee arthroplasty with no postoperative complications. 7. Hypertension. 8. Hypothyroidism. 9. Asthma. 10. Peripheral neuropathy. 11. Chronic tobacco abuse. PLAN: We will continue present plan of care including her vancomycin and Ancef. Will plan to keep her over the weekend and decide on her discharge on Tuesday. Physical therapy will continue for strengthening and conditioning. Orthopedic issues will be per Dr. Armas. We will also need to decide how long her IV therapy is and most likely will need to call Dr. Melgoza, Infectious Disease physician on Tuesday for recommendations. I have also ordered some labs we will review as she has not had any lab in the last several days. We will treat as needed. I will order AM lab as needed and will continue to monitor closely and follow as needed. [facility][id number] [facility]
[2019-07-07] MEDS ORDERED: POTASSIUM CHLORIDE 10 MEQ TAB PO SCH (11:30)
--- NOTE | 2019-07-07 15:35 | PN ---
SUPERVISING PHYSICIAN: Truman Fisher MD DATE: 07/07/19 SUBJECTIVE: The patient is walking in the hallway. She has been walking most of the morning with her walker. She did feel like her knee was somewhat tighter than previously, although the nurses say she has been up most of the day and the patient admits to not having her leg elevated. Otherwise, there are no complaints of shortness of breath, chest pain, nausea or vomiting. OBJECTIVE: VITAL SIGNS: Temperature 98.6, heart rate 72, blood pressure 177/69, respiratory rate 18, oxygen saturation 93% on room air. RESPIRATORY: Essentially clear to auscultation bilaterally. HEART: Regular rate and rhythm. EXTREMITIES: The right knee is minimally red with slightly more edema than yesterday. Skin is slightly tighter than yesterday, it is still warm to the touch but very minimal erythema is noted. The area that was marked prior to her surgery is markedly improved, most likely due to patient being up on her leg most of the morning. NEUROLOGIC: She is awake, alert, and oriented x3. LABORATORY: Sodium 142, potassium 2.8. Magnesium 1.6. All other labs and films have been reviewed via the EMR. Preliminary blood cultures show no growth after 4 days. ASSESSMENT: 1. Influenza A infection having been on Xofluza now showing to be afebrile with some slight improvement. 2. Cellulitis involving the lateral aspect of the right knee that is superficial with no obvious joint involvement, improving with antibiotics to include Ancef and vancomycin. 3. Knee sprain, probably resulting in #2. 4. Urticarial reaction to the right upper deltoid secondary to a previous pneumonia vaccine improving with Benadryl and steroids. 5. History of deep venous thromboses with pulmonary embolism on chronic Eliquis for anticoagulation therapy. 6. Status post left total knee arthroplasty with no postoperative complications. 7. Hypertension. 8. Hypothyroidism. 9. Asthma. 10. Peripheral neuropathy. 11. Chronic tobacco abuse. PLAN: We will continue present supportive care. Orthopedic issues will be per Dr. Adryan Armas, orthopedic surgeon. I have given her some potassium replacement as well as some magnesium supplementation. I will recheck her lab in the morning. Will still plan for discharge on Tuesday and we may need to contact Dr. Melgoza at that time for recommendations on her continuing IV antibiotic therapy. We will continue to monitor closely and follow as needed #[id number] [facility]
--- NOTE | 2019-07-07 15:51 | PN ---
DATE: 07/07/19 SUBJECTIVE: Jada is doing well and sleeping. She has had excellent pain control. She has been up walking without an assistive device. OBJECTIVE: Afebrile. Vital signs are stable. The wound is clean and there are no signs or symptoms of infection. ASSESSMENT: 1. .Status post total knee arthroplasty. 2. Cellulitis of the arm. 3. Upper respiratory infection. PLAN: The plan at this point is for her to continue on with her current regimen. We will continue on with her until she is fully mobile and safe to be discharged. #[id number] [facility]
[2019-07-07] MEDS: HYDROcodone 5MG/APAP 325MG 1 EA TAB PO PRN (16:24)
[2019-07-07] MEDS: GABAPENTIN 300 MG CAP PO SCH (20:32)
[2019-07-07] MEDS: hydrOXYzine HCl 25 MG TAB PO SCH (20:32)
[2019-07-08] MEDS: IPRATROPIUM/ALBUTEROL 3 ML VIAL INH SCH ×5 (01:16→19:35)
[2019-07-08] MEDS: ceFAZolin SODIUM 2 GM in SODIUM CHLORIDE 0.9% 100ML 100 ML IVPB SCH ×3 (02:03→18:57)
[2019-07-08] MEDS ORDERED: VANCOMYCIN HCL INJ 500 MG VIAL ONE ×3 (03:23→19:21)
[2019-07-08] MEDS ORDERED: SODIUM CHLORIDE 0.9% 250ML 250 ML ONE ×3 (03:24→19:22)
[2019-07-08] MEDS ORDERED: VANCOMYCIN HCL INJ 1,000 MG VIAL IVPB ONE ×3 (03:24→19:23)
[2019-07-08] MEDS: VANCOMYCIN HCL INJ 1,000 MG, VANCOMYCIN HCL INJ 250 MG in SODIUM CHLORIDE 0.9% 250ML 25... IVPB SCH ×2 (03:27→16:38)
[2019-07-08] MEDS: HYDROcodone 5MG/APAP 325MG 1 EA TAB PO PRN ×2 (04:30→11:39)
[2019-07-08] MEDS: THYROID PO SCH (06:09)
[2019-07-08] MEDS: LOSARTAN POTASSIUM 25 MG TAB PO SCH (08:29)
[2019-07-08] MEDS: ASPIRIN (ENTERIC COATED) 81 MG TAB PO SCH (08:29)
[2019-07-08] MEDS: FUROSEMIDE 40 MG TAB PO SCH (08:29)
[2019-07-08] MEDS: BIFIDOBACTERIUM INFANTIS 4 MG CAP PO SCH (08:29)
[2019-07-08] MEDS: VORTIOXETINE HBR 20 MG PO SCH (08:30)
[2019-07-08] MEDS: POTASSIUM CHLORIDE 10 MEQ TAB PO SCH ×2 (08:30→20:00)
[2019-07-08] MEDS: APIXABAN 5 MG TAB PO SCH ×2 (08:30→20:01)
[2019-07-08] MEDS: ATENOLOL 25 MG TAB PO SCH ×2 (08:30→20:02)
[2019-07-08] MEDS ORDERED: POTASSIUM CHLORIDE 20 MEQ TAB PO ONE (08:34)
[2019-07-08] MEDS: TIOTROPIUM INHALER INH SCH (08:52)
[2019-07-08] MEDS ORDERED: SODIUM CHLORIDE 0.9% 100ML 100 ML IVPB ONE ×3 (09:37→19:23)
[2019-07-08] MEDS ORDERED: ceFAZolin SODIUM 1 GM VIAL ONE ×3 (09:38→19:23)
--- NOTE | 2019-07-08 16:31 | PN ---
SUPERVISING PHYSICIAN: Truman Fisher MD DATE: 07/08/19 SUBJECTIVE: The patient is sitting in bed. She is on the CPM machine. She has no complaints of chest pain, shortness of breath. She did say she may have overdone it yesterday and walked too much because her leg is quite sore today but otherwise no complaints. OBJECTIVE: VITAL SIGNS: Temperature 97.8, heart rate 67, blood pressure 149/68, respiratory rate 18, oxygen saturation 97% on room air. RESPIRATORY: Essentially clear to auscultation bilaterally. HEART: Regular rate and rhythm. ABDOMEN: Soft, nondistended, non-tender. Bowel sounds are positive. EXTREMITIES: The right knee is slightly edematous but no redness with minimally warmth to touch. Her bilateral pedal pulses are palpable at +2. Dressing is well approximated and there are no signs or symptoms of complications. NEUROLOGIC: She is awake, alert, and oriented x3. LABORATORY: WBC 605 with hemoglobin of 8.5, hematocrit 27.2. Electrolytes show a sodium of 139, potassium 3.4, chloride 102, calcium 8.2, magnesium 1.9. Blood cultures show no growth after 5 days. All other labs and films have been reviewed via the EMR. ASSESSMENT: 1. Influenza A infection having been on Xofluza now showing to be afebrile with some slight improvement. 2. Cellulitis involving the lateral aspect of the right knee that is superficial with no obvious joint involvement, improving with antibiotics to include Ancef and vancomycin. 3. Knee sprain, probably resulting in #2. 4. Urticarial reaction to the right upper deltoid secondary to a previous pneumonia vaccine improving with Benadryl and steroids. 5. History of deep venous thromboses with pulmonary embolism on chronic Eliquis for anticoagulation therapy. 6. Status post left total knee arthroplasty with no postoperative complications. 7. Hypertension. 8. Hypothyroidism. 9. Asthma. 10. Peripheral neuropathy. 11. Chronic tobacco abuse. PLAN: We will continue present supportive care at this point. As she lives so far away, I am not sure she will be discharged tomorrow or Tuesday but we will continue to monitor closely. Her hemoglobin and hematocrit did drop slightly overnight so I will recheck that in the morning. Otherwise, will continue to monitor closely and follow as needed. [facility][id number] [facility]
[2019-07-08] MEDS: HYDROcodone 10MG/APAP 325MG 1 EA TAB PO PRN (19:57)
[2019-07-08] MEDS: hydrOXYzine HCl 25 MG TAB PO SCH (20:01)
[2019-07-08] MEDS: GABAPENTIN 300 MG CAP PO SCH (20:01)
[2019-07-09] MEDS: ceFAZolin SODIUM 2 GM in SODIUM CHLORIDE 0.9% 100ML 100 ML IVPB SCH ×3 (02:34→18:00)
[2019-07-09] MEDS: VANCOMYCIN HCL INJ 1,000 MG, VANCOMYCIN HCL INJ 250 MG in SODIUM CHLORIDE 0.9% 250ML 25... IVPB SCH ×2 (03:34→16:50)
[2019-07-09] MEDS: THYROID PO SCH (06:11)
[2019-07-09] MEDS ORDERED: MAGNESIUM SULFATE PREMIX 2GM 2 GM in PREMIX BAG 1 BAG IVPB ONE (07:26)
[2019-07-09] MEDS: ATENOLOL 25 MG TAB PO SCH ×2 (08:09→20:47)
[2019-07-09] MEDS: FUROSEMIDE 40 MG TAB PO SCH (08:09)
[2019-07-09] MEDS: APIXABAN 5 MG TAB PO SCH ×2 (08:09→20:47)
[2019-07-09] MEDS: LOSARTAN POTASSIUM 25 MG TAB PO SCH (08:09)
[2019-07-09] MEDS: POTASSIUM CHLORIDE 10 MEQ TAB PO SCH ×2 (08:09→20:47)
[2019-07-09] MEDS: ASPIRIN (ENTERIC COATED) 81 MG TAB PO SCH (08:10)
[2019-07-09] MEDS: VORTIOXETINE HBR 20 MG PO SCH (08:10)
[2019-07-09] MEDS: BIFIDOBACTERIUM INFANTIS 4 MG CAP PO SCH (08:10)
[2019-07-09] MEDS: IPRATROPIUM/ALBUTEROL 3 ML VIAL INH SCH ×4 (08:16→19:35)
[2019-07-09] MEDS: TIOTROPIUM INHALER INH SCH (08:16)
[2019-07-09] MEDS ORDERED: MAGNESIUM SULFATE PREMIX 2GM 50 ML IVPB ONE (08:28)
[2019-07-09] MEDS: cloNIDine HCL 0.1 MG TAB PO PRN (09:07)
[2019-07-09] MEDS ORDERED: SODIUM CHLORIDE 0.9% 100ML 100 ML IVPB ONE ×3 (10:31→20:07)
[2019-07-09] MEDS ORDERED: ceFAZolin SODIUM 1 GM VIAL ONE ×3 (10:31→20:08)
[2019-07-09] MEDS ORDERED: SODIUM CHLORIDE 0.9% 250ML 250 ML ONE ×2 (16:45→20:06)
[2019-07-09] MEDS ORDERED: VANCOMYCIN HCL INJ 1,000 MG VIAL IVPB ONE ×2 (16:45→20:07)
[2019-07-09] MEDS ORDERED: VANCOMYCIN HCL INJ 500 MG VIAL ONE ×2 (16:45→20:05)
[2019-07-09] MEDS: IV SET AND CAP CHANGE INJ INJ SCH (17:24)
--- NOTE | 2019-07-09 18:24 | PN ---
SUPERVISING PHYSICIAN: Doug Iraheta MD DATE: 07/09/19 SUBJECTIVE: The patient is resting just having finished her CPM and walking. She notes she feels like she is doing pretty good. Pain is controlled. She is not having any shortness of breath. OBJECTIVE: VITAL SIGNS: She remains afebrile. Temperature 97. Pulse 66. Blood pressure 150/71. Respiratory rate 16. Saturation 92% on room air. GENERAL: The patient is resting comfortably, does not appear to be in any acute distress. CHEST: Lungs are clear to auscultation bilaterally without any rhonchi, wheezing or rales. HEART: Regular rate and rhythm. ABDOMEN: Soft, nontender. Positive bowel sounds. EXTREMITIES: Right knee still a little bit edematous, but no obvious redness. It is not tender to touch. Distal pulses are 2+. No signs of any complications or obvious infection at this point. NEUROLOGIC: Alert and oriented times three. LABORATORY: Hemoglobin 8.6, hematocrit 27.3. Chemistries show normal electrolytes with BUN 0.54, magnesium a little low at 1.7. Vancomycin trough is 16.7. Blood cultures remain negative after 5 days. RADIOLOGY: No additional radiographic studies. ASSESSMENT: 1. Influenza A infection treated with Xofluza, remaining afebrile and showing improvement. 2. Cellulitis involving the lateral aspect of the right knee that is superficial with no obvious joint involvement, improving with antibiotics to include Ancef and vancomycin. 3. Knee sprain, probably resulting in #2. 4. Urticarial rash, right upper deltoid secondary to a previous pneumonia vaccine, resolved after Benadryl and steroids. 5. History of deep venous thromboses with pulmonary embolism on chronic Eliquis for anticoagulation therapy. 6. Status post left total knee arthroplasty with no postoperative complications. 7. Hypertension. 8. Hypothyroidism. 9. Asthma. 10. Peripheral neuropathy. 11. Chronic tobacco abuse. PLAN: We will continue to follow the patient as she continues with an additional 24 hours of antibiotic coverage with anticipation of discharging home tomorrow. She will followup closely with Dr. Armas. Until then, we will continue to monitor and treat as needed. #[id number] [facility]
[2019-07-09] MEDS ORDERED: cloNIDine HCL 0.1 MG TAB PO ONE (20:45)
[2019-07-09] MEDS: hydrOXYzine HCl 25 MG TAB PO SCH (20:47)
[2019-07-09] MEDS: GABAPENTIN 300 MG CAP PO SCH (20:47)
[2019-07-09] MEDS: HYDROcodone 10MG/APAP 325MG 1 EA TAB PO PRN (22:16)
[2019-07-10] MEDS: ceFAZolin SODIUM 2 GM in SODIUM CHLORIDE 0.9% 100ML 100 ML IVPB SCH ×2 (03:09→11:01)
[2019-07-10] MEDS: VANCOMYCIN HCL INJ 1,000 MG, VANCOMYCIN HCL INJ 250 MG in SODIUM CHLORIDE 0.9% 250ML 25... IVPB SCH (04:30)
[2019-07-10] MEDS: THYROID PO SCH (06:29)
[2019-07-10] MEDS: TIOTROPIUM INHALER INH SCH (08:01)
[2019-07-10] MEDS: IPRATROPIUM/ALBUTEROL 3 ML VIAL INH SCH (08:01)
[2019-07-10] MEDS: BIFIDOBACTERIUM INFANTIS 4 MG CAP PO SCH (08:26)
[2019-07-10] MEDS: APIXABAN 5 MG TAB PO SCH (08:26)
[2019-07-10] MEDS: POTASSIUM CHLORIDE 10 MEQ TAB PO SCH (08:27)
[2019-07-10] MEDS: LOSARTAN POTASSIUM 25 MG TAB PO SCH (08:27)
[2019-07-10] MEDS: ASPIRIN (ENTERIC COATED) 81 MG TAB PO SCH (08:27)
[2019-07-10] MEDS: FUROSEMIDE 40 MG TAB PO SCH (08:27)
[2019-07-10] MEDS: ATENOLOL 25 MG TAB PO SCH (08:28)
[2019-07-10] MEDS: VORTIOXETINE HBR 20 MG PO SCH (08:28)
[2019-07-10 10:22] VITALS: BP 168/71; TEMP 98; O2SAT 96
--- NOTE | 2019-07-10 10:26 | PN ---
DATE: 07/09/19 SUBJECTIVE: Ms. Montero seems to be doing well. She has no pain at all in the knee and she is up ambulating. OBJECTIVE: Afebrile. Vital signs are stable. There is no erythema about the knee or arm. ASSESSMENT: 1. Status post total knee arthroplasty. 2. Cellulitis of the arm. 3. Upper respiratory infection. PLAN: At this point, the plan is for discharge tomorrow. #[id number] [facility]
--- NOTE | 2019-07-10 10:34 | PN ---
DATE: 07/10/19 SUBJECTIVE: Ms. Montero is continuing to do well. OBJECTIVE: Afebrile. Vital signs are stable. The wound is clean and she has had resolution of her erythema. ASSESSMENT: 1. Status post total knee arthroplasty. 2. Cellulitis of the arm. 3. Upper respiratory infection. PLAN: At this point, the plan is for discharge to home. She will be doing inpatient physical therapy in [place]. She will followup with us in 3 weeks. She has been instructed to return immediately should any change in her condition occur. #[id number] [facility]
[2019-07-10] MEDS: HYDROcodone 10MG/APAP 325MG 1 EA TAB PO PRN (11:01)
[2019-07-14] MEDS: POTASSIUM CHLORIDE 20 MEQ TAB PO SCH (15:30)
--- NOTE | 2019-07-17 08:54 | DS ---
SUPERVISING PHYSICIAN: Doug Iraheta MD ADMISSION DIAGNOSIS: 1. Questionable cellulitis to the lateral aspect of the right knee. 2. Knee sprain secondary to physical therapy probably resulting in #1. 3. Influenza A infection. 4. Status post total knee arthroplasty. 5. Hypertension. 6. Hypothyroidism. 7. Asthma. 8. Peripheral neuropathy. 9. Chronic tobacco abuse. DISCHARGE DIAGNOSIS: 1. Influenza A infection treated with Xofluza, remaining afebrile and showing improvement. 2. Cellulitis involving the lateral aspect of the right knee that is superficial with no obvious joint involvement, improving with antibiotics to include Ancef and vancomycin. 3. Knee sprain, probably resulting in #2. 4. Urticarial rash, right upper deltoid secondary to a previous pneumonia vaccine, resolved after Benadryl and steroids. 5. History of deep venous thromboses with pulmonary embolism on chronic Eliquis for anticoagulation therapy. 6. Status post left total knee arthroplasty with no postoperative complications. 7. Hypertension. 8. Hypothyroidism. 9. Asthma. 10. Peripheral neuropathy. 11. Chronic tobacco abuse. REASON FOR HOSPITALIZATION: Ms. Montero is a 64 year-old female patient who underwent a total knee replacement arthroplasty on 06/12/19. Postoperatively, she did well and was discharged to inpatient rehabilitation facility in [place], [place]. She endorses that she has done pretty good, however, she had a therapy session yesterday and started having some pain after. She noted her knee became stiff and she had some pain on the lateral aspect with some redness but no significant swelling. She also endorses that for the last 24 hours she has been having some generalized malaise and running a low- grade fever. Dr. Armas contacted the Infectious Care Facility yesterday to discuss the patient's care and requested that Ms. Montero be transferred to [place] for evaluation. She was seen in the Emergency Room and was found to have some pain along the lateral aspect of her right knee but no notable swelling. Dr. Armas requested that the patient be admitted for concerns for possible cellulitis but no evidence of any joint involvement. She also had a flu swab which showed positive for influenza A. She is now going to be admitted for observation and initiation of antibiotic therapy and treatment of underlying influenza A infection. LABORATORY: White count on admission was 6,900, at discharge it was 6,500. Hemoglobin 8.6, hematocrit 27.3 with platelet count 345,000. Differential was without a left shift. ESR 53 on admission. Coagulation studies showed normal PT, PTT. Chemistries showed C-reactive protein at 8.0 on admission. Final chemistries showed normal electrolytes with BUN 8, creatinine 0.54, magnesium was a little low at 1.7. Urinalysis showed tract intact blood, 2.0 urobilinogen. Vancomycin trough on 07/09/19 of 16.7. MICROBIOLOGY: Blood cultures remained negative after 5 days. Throat culture showed no growth. Influenza A and B by PCR was positive for influenza A. RADIOLOGY: On admission, she had a chest x-ray that showed no acute cardiopulmonary process. She also had another chest x-ray post PICC line placement. She had right lower extremity and right upper extremity Dopplers and per radiologic interpretation showed no evidence of thrombus or DVT. EKG on admission showed normal sinus. HOSPITAL COURSE: Ms. Jada Montero was admitted for cellulitis and influenza A. She was on treatment with Xofluza. She was also started on antibiotic treatment with vancomycin and Ancef. She did show good clinical response to treatment and it was felt she had progressed well enough to continue with outpatient management. PLAN: Ms. Montero was discharged on 07/10/19 to home. She was to continue antibiotic treatment with doxycycline 100 mg q.12h. for 10 days as well as Align 4 mg daily with pain management with [place] 5/325 as needed. All other medications were continued as is prior to hospitalization. She was to followup with Dr. Armas as scheduled and continue physical therapy as directed. All other medications prior to hospitalization were continued. DISPOSITION: The patient was discharged home. CONDITION ON DISCHARGE: Stable and improved. #[id number] [facility]
== END 2019-07-10 11:47 | disposition home or self-care (01) | DRG 194 ==
LOC: ER 10:13 → MS 12:46 → OBSVTOIN 12:46 → UNDOADMOB 12:46
PROVIDERS: ADMIT Nurse Practitioner Family; ATTEND Nurse Practitioner Family
PROC: 02HV33Z Insertion of Infusion Device into Superior Vena Cava, Percutaneous Approach (ICD-10-PCS; principal; 2019-07-04)
DX: J10.1 Influenza due to other identified influenza virus with other respiratory manifestations (principal); L03.115 Cellulitis of right lower limb; T88.1XXA Other complications following immunization, not elsewhere classified, initial encounter; S83.92XA Sprain of unspecified site of left knee, initial encounter; X50.0XXA Overexertion from strenuous movement or load, initial encounter; M19.90 Unspecified osteoarthritis, unspecified site; F41.9 Anxiety disorder, unspecified; J45.909 Unspecified asthma, uncomplicated; F32.9 Major depressive disorder, single episode, unspecified; K21.9 Gastro-esophageal reflux disease without esophagitis; I10 Essential (primary) hypertension; E03.9 Hypothyroidism, unspecified; G62.9 Polyneuropathy, unspecified; Z86.718 Personal history of other venous thrombosis and embolism; Z79.891 Long term (current) use of opiate analgesic; Z79.1 Long term (current) use of non-steroidal anti-inflammatories (NSAID); Z79.899 Other long term (current) drug therapy; Z88.0 Allergy status to penicillin; F17.210 Nicotine dependence, cigarettes, uncomplicated; Z79.01 Long term (current) use of anticoagulants; Z86.711 Personal history of pulmonary embolism; Z96.652 Presence of left artificial knee joint; Y93.9 Activity, unspecified; Y92.89 Other specified places as the place of occurrence of the external cause; L27.1 Localized skin eruption due to drugs and medicaments taken internally; T50.Z95A Adverse effect of other vaccines and biological substances, initial encounter; Y84.8 Other medical procedures as the cause of abnormal reaction of the patient, or of later complication, without mention of misadventure at the time of the procedure